=== PATIENT | male | born 1995 | race Caucasian/White ===

== ENCOUNTER 2019-07-08 15:54 | Emergency (ER) | payer MEDICAID, OTHER ==
[2019-07-08 16:52] VITALS: BP 123/59
--- NOTE | 2019-07-08 17:21 | UC ---
Skin Complaint HPI - HPI Summary HPI Summary: 24 yo male with rash primarily on trunk x 8 mos no itch no pain some rash on arms/neck and inner thighs - History of Current Complaint Chief Complaint: UCRash Time Seen by Provider: 07/08/19 17:03 Stated Complaint: SKIN Hx Obtained From: Patient Onset/Duration: Gradual Onset, Lasting Weeks Timing: Constant Onset Severity: Mild Current Severity: Mild Pain Intensity: 0 Pain Scale Used: 0-10 Numeric Location: Other - see hpi Character: Redness Aggravating Factor(s): Nothing Alleviating Factor(s): Nothing Associated Signs & Symptoms: Positive: Rash - Allergy/Home Medications Allergies/Adverse Reactions: Allergies Allergy/AdvReac Type Severity Reaction Status Date / Time lactose Allergy Diarrhea Verified 07/08/19 16:42 animals Allergy Unknown Uncoded 07/08/19 16:42 Reaction Details Home Medications: Home Medications NK [No Home Medications Reported] 07/08/19 [History Confirmed 07/08/19] PMH/Surg Hx/FS Hx/Imm Hx Previously Healthy: Yes - Surgical History Surgical History: Yes Surgery Procedure, Year, and Place: t/a, hernia - Family History Known Family History: Positive: Hypertension - Social History Alcohol Use: Occasionally Substance Use Type: None Smoking Status (MU): Never Smoked Tobacco Review of Systems All Other Systems Reviewed And Are Negative: Yes Constitutional: Positive: Negative Skin: Positive: Rash Eyes: Positive: Negative ENT: Positive: Negative Respiratory: Positive: Negative Cardiovascular: Positive: Negative Gastrointestinal: Positive: Negative Genitourinary: Positive: Negative Motor: Positive: Negative Neurovascular: Positive: Negative Musculoskeletal: Positive: Negative Neurological/Mental Status: Positive: Negative Psychological: Positive: Negative Physical Exam Triage Information Reviewed: Yes Appearance: Well-Appearing, No Pain Distress, Well-Nourished Vital Signs: Initial Vital Signs Temp 99.5 F 07/08/19 16:49 Pulse 87 07/08/19 16:49 Resp 18 07/08/19 16:49 BP 123/59 07/08/19 16:49 Pulse Ox 100 07/08/19 16:49 Vital Signs Reviewed: Yes Eyes: Positive: Conjunctiva Clear ENT: Positive: Hearing grossly normal, Uvula midline. Negative: Nasal congestion, Nasal drainage, Trismus, Muffled voice, Hoarse voice Dental: Negative: Abscess @ Neck: Positive: Supple, Nontender, No Lymphadenopathy Respiratory: Positive: Lungs clear, Normal breath sounds, No respiratory distress Cardiovascular: Positive: RRR, No Murmur Abdomen Description: Positive: Nontender Bowel Sounds: Positive: Present Musculoskeletal: Positive: ROM Intact Neurological: Positive: Alert Skin: Positive: Other - ovoid red rash most uniform about 1 cm long- some spots bigger, no palmar lesions or intraoral lesions Course/Dx - Diagnoses Provider Diagnosis: Rash of unknown etiology Discharge ED - Sign-Out/Discharge Documenting (check all that apply): Patient Departure All imaging exams completed and their final reports reviewed: No Studies - Discharge Plan Condition: Stable Disposition: HOME Patient Education Materials: Acute Rash (ED) Referrals: Adriana Yu [Medical Doctor] - (ask for a [employer] appt) Additional Instructions: I am unsure of the cause of your rash I suggest you followup with a heel cementer machine - Billing Disposition and Condition Condition: STABLE Disposition: Home
== END 2019-07-08 17:20 | disposition home or self-care (01) ==
LOC: UCCORT 15:54
DX: R21 Rash and other nonspecific skin eruption (principal); Z91.011 Allergy to milk products; Z91.09 Other allergy status, other than to drugs and biological substances
CPT/HCPCS: 99201; G0463